=== PATIENT | female | born 1995 | race Caucasian/White ===

== ENCOUNTER → 2016-12-27 | Outpatient (CLI) | payer OTHER ==
[~2016-12-27] MED LIST: HYDR-756 PO
--- NOTE | 2016-12-27 10:25 | Diagnostic Imaging Report ---
PROCEDURE: US Gallbladder. TECHNIQUE: Multiple real-time grayscale images were obtained over the right upper quadrant in various projections. INDICATION: Right upper quadrant pain. FINDINGS: The liver parenchyma appears normal. The gallbladder appears normal. There is no abnormal dilatation of the intra or extrahepatic bile ducts. The visualized portions of the pancreas are normal. The unobstructed right kidney is normal in size, cortical thickness, and echotexture. There is no ascites or fluid collection. IMPRESSION: Normal right upper quadrant ultrasound. Dictated by: Dictated on workstation # [id number]
== END ==
LOC: RAD 07:05
PROVIDERS: ATTEND Nurse Practitioner Family
DX: R10.11 Right upper quadrant pain (principal)
CPT/HCPCS: 76705

== ENCOUNTER → 2017-04-23 | Outpatient (CLI) | payer BC, OTHER ==
[~2017-04-23] MED LIST changes: +CATHETER FLUSH 10 ML SYR IV PRN
--- NOTE | 2017-04-23 14:39 | Diagnostic Imaging Report ---
INDICATION: Abdominal pain. TECHNIQUE AND FINDINGS: Acquisitions were acquired of the abdomen after the administration of 4.8 mCi of technetium 99m Choletec. The ejection fraction was calculated after administering 8 ounces of Ensure. FINDINGS: There is homogeneous uptake of isotope throughout the liver. There is significant accumulation within the gallbladder by 30 minutes. There is free flow of activity in the small bowel. The ejection fraction is 33%. IMPRESSION: No evidence of cystic duct obstruction. The gallbladder ejection fraction was at the lower limits of normal at 33%. Recommend clinical correlation. Dictated by: Dictated on workstation # [id number]
== END ==
LOC: CARD 10:42
PROVIDERS: ATTEND Internal Medicine
DX: R63.4 Abnormal weight loss (principal)
CPT/HCPCS: 78227

== ENCOUNTER 2017-08-07 11:00 | Outpatient (CLI) | payer BC ==
[~2017-08-07] VITALS: Ht 160 cm; Wt 77.6 kg
[~2017-08-07 11:00] MED LIST changes: -CATHETER FLUSH 10 ML SYR IV PRN; +HYDR-3816 PO; +ONDA4TAB8 PO
[2017-08-08] MEDS ORDERED: PANT40TA2 PO (11:42)
== END 2017-08-07 12:55 ==
LOC: PREOP 11:00
PROVIDERS: ATTEND Surgery
DX: Z01.818 Encounter for other preprocedural examination (principal); R19.7 Diarrhea, unspecified; K21.9 Gastro-esophageal reflux disease without esophagitis

== ENCOUNTER → 2017-08-08 | Day surgery (SDC) | payer BC ==
[~2017-08-08] VITALS: Ht 160 cm; Wt 77.6 kg
[~2017-08-08] MED LIST changes: +ACETAMINOPHEN 325 MG TABLET/CAPLET (TYLENOL) PO PRN; +HURRICAINE EXT TUBE (BENZOCAINE) ONE; +HURRICAINE EXT TUBE (BENZOCAINE) XX PRN; +HYDROcodone/APAP 5 MG/325 MG (LORTAB) TAB PO PRN; +LIDOCAINE JELLY 2% (XYLOCAINE) 5 ML TUBE MM PRN; +LIDOCAINE JELLY 2% (XYLOCAINE) 5 ML TUBE ONE; +MIDAZOLAM 2 MG/2 ML (VERSED) VIAL ONE; +NS IV 500 ML 500 ML IV PRN; +NS IV 500 ML 500 ML ONE; +ONDANSETRON 4 MG/2 ML (SDV) Z0FRAN IV PRN; +PANT40TA2 PO; +fentaNYL INJECTION 100 MCG/2 ML AMP ONE; +morphine INJ 10 MG/ML 1ML (SYR OR VIAL) IV PRN
[2017-08-08 09:38] VITALS: BP 117/65
[2017-08-08] MEDS: MIDAZOLAM 2 MG/2 ML (VERSED) VIAL IVP PRN ×7 (10:30→11:06)
[2017-08-08] MEDS: fentaNYL INJECTION 100 MCG/2 ML AMP IVP PRN ×4 (10:31→11:07)
--- NOTE | 2017-08-08 10:41 | Conscious Sedation/ASA ---
Conscious Sedation Pre-Proced Time Reviewed: 10:00 ASA Class: 1 Airway Mallampati Classification: ([place] appropriate class) I. II. III, IV Lungs Heart ASA score ASA 1: a normal healthy patient ASA 2: a patient with a mild systemic disease (mid diabetes, controlled hypertension, obesity ASA 3: a patient with a severe systemic disease that limits activity (angina , COPD, prior Myocardial infarction) ASA 4: a patient with an incapacitating disease that is a constant threat to life (CHF, renal failure) ASA 5: a moribund patient not expected to survive 24 hrs. (ruptured aneurysm) ASA 6: a declared brain patient whose organs are being harvested. For emergent operations, add the letter E after the classification Grade 2 Sedation Plan: Analgesia, Amnesia, Plan communicated to team members, Discussed options with patient/fam, Discussed risks with patient/fam Note The patient is an appropriate candidate to undergo the planned procedure, sedation, and anesthesia. The patient immediately re-assessed prior to indication. LEI LAW MD Aug 08, 2017 10:41 am
--- NOTE | 2017-08-08 10:42 | Progress Note-Pre Operative ---
Pre-Operative Progress Note H&P Reviewed The H&P was reviewed, patient examined and no changes noted. Date Seen by Provider: Aug 08, 2017 Time Seen by Provider: 10:00 Date H&P Reviewed: Aug 08, 2017 Time H&P Reviewed: 10:00 Pre-Operative Diagnosis: GERD, abd pain, mucous stools LEI LAW MD Aug 08, 2017 10:42 am
[2017-08-08 11:30] VITALS: BP 120/65
--- NOTE | 2017-08-08 11:41 | Progress Note-Post Operative ---
Post-Operative Progess Note Surgeon (s)/Making Department Preparer (s) Surgeon LEI LAW MD Making Department Preparer: none Pre-Operative Diagnosis GERD, abd pain, mucous stools Post-Operative Diagnosis reflux esophagitis(class B), small HH(1.5cm), mild-mod gastritis. normal colon and rectum. Procedure & Operative Findings Date of Procedure 08/08/17 Procedure Performed/Findings EGD with bx. Colonoscopy with bx. Anesthesia Type CS Estimated Blood Loss Estimated blood loss (mL): minimal Specimens/Packing Specimens Removed GE jxn, antrum, cecum LEI LAW MD Aug 08, 2017 11:41 am
--- NOTE | 2017-08-08 11:43 | Discharge Inst-Surgical ---
D/C Lap Instructions-KIDO New, Converted, or Re-Newed RX: RX on Chart Follow Up PRN Schedule Dietary evaluation(script in chart) Activity as tolerated High Fiber Diet 30 g or more per day Avoid Alcohol, Caffeine, Spicy [place] and Acid foods. Drink 64 fluid oz or more of fluids per day. Symptoms to Report: Fever over 101 degree F, Nausea/Vomiting If any problems/questions: Contact your physician or go to Emergency Room LEI LAW MD Aug 08, 2017 11:43 am
[2017-08-08 12:00] VITALS: BP 116/67
[2017-08-08 12:09] VITALS: BP 116/67
--- NOTE | 2017-08-08 13:33 | OPERATIVE REPORT ---
DATE OF SERVICE: 08/08/2017 ATTENDING PRIMARY CARE PHYSICIAN: [facility]. PREOPERATIVE DIAGNOSIS: Gastroesophageal reflux disease, diarrhea, mucusy stools. POSTOPERATIVE DIAGNOSIS: Reflux esophagitis class B, small hiatal hernia approximately 1.5 cm in size, mild to moderate gastritis. Colon and rectum were normal. PROCEDURE: EGD with biopsy, colonoscopy with biopsy. SURGEON: Dr. Law. ANESTHESIA: Conscious sedation. ESTIMATED BLOOD LOSS: Minimal. FINDINGS: 1. EGD, reflux esophagitis class B, small hiatal hernia approximately 1.5 cm in size. Mild to moderate severity gastritis with no formal ulcers, polyps or any neoplasms. Pylorus and duodenum appeared normal with no distal obstructions. 2. Colonoscopy: Rectum and anus appeared normal with no inflammatory change to indicate any inflammatory bowel disease. DISPOSITION: The patient tolerated the procedure well. The patient is a 21-year-old female who was initially seen by us 06/2017 for right upper abdominal quadrant pain. She underwent an ultrasound which was normal. She then proceeded with a HIDA scan which showed an ejection fraction of 33% and symptoms upon administration of Kinevac analog consistent with a biliary dyskinesia. On 07/05/2017, she underwent a laparoscopic cholecystectomy. She reports that even in the past six months, she has been having other issues including lower quadrant abdominal pain as well as diarrhea following meals. She was experiencing this before her cholecystectomy as well. She reports that she has epigastric burning sensation and also does have occasional episodes of nocturnal regurgitation. She also reports that she has noticed mucous in her stools. She does not report any red blood per rectum nor any dark tarry stools. She also does not report any known family history of inflammatory bowel disease. DESCRIPTION OF PROCEDURE: The patient was brought to the endoscopy suite, laid in the left lateral decubitus position. After adequate IV pain and sedating medications and conscious sedation anesthesia, the mouthpiece was applied. The endoscope was then placed in the mouth, visualizing the pharynx and hypopharyngeal region. Vocal cords, epiglottis and vallecula are identified and appeared to be normal. The endoscope was then gently intubated at the esophageal opening, esophagus insufflated. The endoscope was then advanced to the first, second and third portions of the esophagus at the level of the GE junction and reflux esophagitis class B identified. There were no ulcers or strictures identified in this region. A biopsy was taken using forceps with visualization of good hemostasis. The endoscope was then easily advanced in the stomach and then endoscope retroflexed, visualizing a small hiatal hernia approximately 1.5 cm in size. A mild to moderate gastritis was also noted. There were no formal ulcers, polyps or any neoplasms identified. A biopsy was taken of the stomach, antrum with forceps with visualization of good hemostasis. The endoscope was then advanced to the pylorus and the first and second portions of duodenum which appeared normal with no distal obstructions as well as no inflammatory changes of the duodenum. The endoscope was then slowly withdrawn taking a second look and suctioning residual air with no additional findings. The patient tolerated this portion of the procedure well. For her gastritis, hiatal hernia and reflux esophagitis, we will recommend the necessary lifestyle and diet accommodations, including small and more frequent meals, avoidance of eating at night as well as head elevation while lying supine. She also needs to avoid alcohol and caffeinated beverages, spicy, greasy and acidic foods. Under the same conscious sedation anesthesia, we then proceeded with the colonoscopy portion of the procedure. A digital rectal examination was performed which did not reveal any significant hemorrhoids. Normal sphincter tone was felt and there were no palpable masses. The endoscope was then intubated to the anus and the rectum gently insufflated. The endoscope was then advanced through the valves of Munoz to the rectum where no polyps or any neoplasms were identified. The endoscope was then advanced through the valves of Munoz to the rectum with no mucosal inflammatory changes identified. We then proceeded through the sigmoid colon where no diverticulosis identified. The endoscope was then advanced to the remainder of the descending, transverse and ascending colon to the cecum. These segments were normal as well. There were no mucosal inflammatory changes identified throughout the colon, rectum or anus to indicate an inflammatory bowel disease. The endoscope was then slowly withdrawn taking a second look and suctioning of residual air with no additional findings. A biopsy was taken of the cecum with forceps with visualization of good hemostasis. The endoscope was then slowly withdrawn while taking a second look and suctioning of residual air with no additional findings. The patient tolerated the procedure well. We will recommend the necessary lifestyle and diet accommodation for irritable bowel syndrome including a high fiber diet with at least 30 grams of fiber per day as well as at least 64-128 fluid ounces of water daily to promote soft stools on a daily basis to retrain her colon. We will also proceed with a dietary consultation. Job ID: [id number] DocumentID: [id number] Dictated Date: 08/08/2017 11:50:26 [employer] Date: 08/08/2017 13:33:05 Dictated By: LEI LAW MD MTDD
== END | disposition home or self-care (01) ==
LOC: ENDO 09:10
PROVIDERS: ATTEND Surgery
DX: K21.0 Gastro-esophageal reflux disease with esophagitis (principal); K63.89 Other specified diseases of intestine; K44.9 Diaphragmatic hernia without obstruction or gangrene; K29.60 Other gastritis without bleeding; R19.7 Diarrhea, unspecified; Z88.2 Allergy status to sulfonamides
CPT/HCPCS: 84703

== ENCOUNTER 2017-11-20 19:09 | Emergency (ER) | payer BC ==
[~2017-11-20] VITALS: Ht 160 cm; Wt 72.6 kg
[~2017-11-20 19:09] MED LIST changes: -ACETAMINOPHEN 325 MG TABLET/CAPLET (TYLENOL) PO PRN; -HURRICAINE EXT TUBE (BENZOCAINE) ONE; -HURRICAINE EXT TUBE (BENZOCAINE) XX PRN; +HYDR-34 PO; -HYDR-3816 PO; -HYDROcodone/APAP 5 MG/325 MG (LORTAB) TAB PO PRN; -LIDOCAINE JELLY 2% (XYLOCAINE) 5 ML TUBE MM PRN; -LIDOCAINE JELLY 2% (XYLOCAINE) 5 ML TUBE ONE; -MIDAZOLAM 2 MG/2 ML (VERSED) VIAL ONE; -NS IV 500 ML 500 ML IV PRN; -NS IV 500 ML 500 ML ONE; -ONDANSETRON 4 MG/2 ML (SDV) Z0FRAN IV PRN; -fentaNYL INJECTION 100 MCG/2 ML AMP ONE; -morphine INJ 10 MG/ML 1ML (SYR OR VIAL) IV PRN
[2017-11-20] MEDS ORDERED: FAMOTIDINE 20MG/2ML IV (PEPCID) IV STA (19:34)
--- NOTE | 2017-11-20 19:42 | ED GI ---
General Chief Complaint: Rect Problems Stated Complaint: BLOOD IN STOOL, ABD PAIN Source of Information: Patient Exam Limitations: No Limitations History of Present Illness Date Seen by Provider: Nov 20, 2017 Time Seen by Provider: 19:30 Initial Comments Patient presents to ER by private conveyance with a chief complaint that 2 days ago she noticed a little bit of dark black tarry stools which today was followed by some passing of clots and bright red blood. She says she's also on her period. In July, 4 months ago she was having a lot of nausea vomiting and had her gallbladder out and then a scope done by Dr. Law, general surgery. They found some gastric ulcers and put her on a PPI, pantoprazole. She says she has not been very good about taking it because she doesn't think it works very well. 2 days ago she was having some acid reflux burning in her stomach epigastric region so she took some omeprazole [id number] and felt that helped with the symptoms quite a bit. She still having some of the symptoms presently. She is not having any shortness of breath chest pain and doesn't have any other significant medical history. She has not taken any other medicines. She says she does drink alcohol on occasion with her last drink being about 3 days ago some red wine. She is having a little stomach discomfort in the epigastric region but no abdominal cramping or pain outside the ordinary. She says she had a few heart palpitations today. No history of coronary disease. She does not smoke but she does relate on occasion. She denies any recreational drug use. She has no dysuria or urinary incontinence or urgency. Allergies and Home Medications Allergies Coded Allergies: Sulfa (Sulfonamide Antibiotics) (Verified Allergy, Unknown, 05/13/15) Home Medications Omeprazole 40 Mg Capsule., 40 MG PO DAILY Prescribed by: LUZ MARINA NIX on 11/20/172058 Pantoprazole Sodium 40 Mg Tablet., 40 MG PO DAILY Prescribed by: LEI LAW on 08/08/17 114 Sucralfate 1 Gm Tablet, 1 GM PO QIDACHS Prescribed by: LUZ MARINA NIX on 11/20/172053 Patient Home Medication List Home Medication List Reviewed: Yes Review of Systems Constitutional: No chills, No diaphoresis, No fever EENTM: No Blurred Vision, No Double Vision, No Eye Pain Respiratory: Denies Cough, Denies Shortness of Air, Denies SOA With Exertion, Denies SOA at Rest Cardiovascular: See HPI, Denies Chest Pain, Denies Irregular Heart Rate, Palpitations Gastrointestinal: Denies Abdomen Distended, Denies Abdominal Pain, Denies Constipated, Denies Diarrhea, Denies Nausea, Rectal Bleeding Genitourinary: Denies Burning, Denies Discharge, Denies Drainage Musculoskeletal: No back pain, No joint pain Skin: No lesions, No pruritus, No rash Psychiatric/Neurological: Denies Headache, Denies Numbness Past [id number] Hx Patient Social History Alcohol Use: Rarely Uses Number of Drinks Today: AA Alcohol Beverage of Choice: Beer Recreational Drug Use: No Smoking Status: Current Someday Smoker Type Used: Electronic/Vapor 2nd Hand Smoke Exposure: No Recent Foreign Travel: No Contact w/Someone Who Travel: No Recent Hopitalizations: No Immunizations Up To Date Tetanus Booster (TDap): Less than 5yrs PED Vaccines UTD: No Date of Pneumonia Vaccine: May 27, 2012 Seasonal Allergies Seasonal Allergies: No Surgeries History of Surgeries: Yes (WISDOM TEETH, LEFT CARPAL TUNNEL) Surgeries: Gallbladder, Orthopedic Respiratory History of Respiratory Disorde: No Currently Using CPAP: No Currently Using BIPAP: No Cardiovascular History of Cardiac Disorders: No Neurological History of Neurological Disord: No Reproductive System Hx Reproductive Disorders: No Sexually Transmitted Disease: No HIV/AIDS: No Female Reproductive Disorders: Denies Genitourinary History of Genitourinary Disor: No Gastrointestinal History of Gastrointestinal Di: Yes (DIARRHEA) Gastrointestinal Disorders: Gastroesophageal Reflux Musculoskeletal History of Musculoskeletal Dis: No Endocrine History of Endocrine Disorders: No HEENT History of HEENT Disorders: No Loss of Vision: Denies Hearing Impairment: Denies Cancer History of Cancer: No Psychosocial History of Psychiatric Problem: No Integumentary History of Skin or Integumenta: No Blood Transfusions History of Blood Disorders: No Adverse Reaction to a Blood Tr: No Physical Exam Vital Signs VS - Last 72 Hours, by Label 11/20/17 19:30 Temp 97.6 Pulse 67 Resp 18 B/P (MAP) 156/95 (115) Pulse Ox 100 O2 Delivery Room Air Capillary Refill : General Appearance: WD/WN, no apparent distress HEENT: PERRL/EOMI, normal ENT inspection, TMs normal, pharynx normal Neck: non-tender, full range of motion, supple, normal inspection Respiratory: chest non-tender, lungs clear, normal breath sounds, no respiratory distress, no accessory muscle use Cardiovascular: normal peripheral pulses, regular rate, rhythm Gastrointestinal: normal bowel sounds, non tender, soft, no organomegaly Rectal: normal exam, normal rectal tone, heme negative stool, No blood streaked stool Extremities: normal range of motion, normal capillary refill Neurologic/Psychiatric: no motor/sensory deficits, alert, normal mood/affect, oriented x 3 Progress/Results/Core Measures Results/Orders Lab Results Laboratory Tests Test 11/20/17 19:45 11/20/17 20:40 Range/Units White Blood Count 8.1 4.3-11.0 10^3/uL Red Blood Count 4.50 4.35-5.85 10^6/uL Hemoglobin 13.6 11.5-16.0 G/DL Hematocrit 40 35-52 % Mean Corpuscular Volume 88 80-99 FL Mean Corpuscular Hemoglobin 30 25-34 PG Mean Corpuscular Hemoglobin Concent 34 32-36 G/DL Red Cell Distribution Width 12.3 10.0-14.5 % Platelet Count 434 H 130-400 10^3/uL Mean Platelet Volume 9.8 7.4-10.4 FL Prothrombin Time 12.9 12.2-14.7 SEC INR Comment 1.0 0.8-1.4 Activated Partial Thromboplast Time 34 24-35 SEC Sodium Level 139 135-145 MMOL/L Potassium Level 3.4 L 3.6-5.0 MMOL/L Chloride Level 105 98-107 MMOL/L Carbon Dioxide Level 23 21-32 MMOL/L Anion Gap 11 5-14 MMOL/L Blood Urea Nitrogen 9 7-18 MG/DL Creatinine 0.75 0.60-1.30 MG/DL Estimat Glomerular Filtration Rate > 60 BUN/Creatinine Ratio 12 Glucose Level 88 70-105 MG/DL Calcium Level 9.7 8.5-10.1 MG/DL Total Bilirubin 0.5 0.1-1.0 MG/DL Aspartate Amino Transf (AST/SGOT) 20 5-34 U/L Alanine Aminotransferase (ALT/SGPT) 15 0-55 U/L Alkaline Phosphatase 57 40-136 U/L Total Protein 7.4 6.4-8.2 GM/DL Albumin 4.8 H 3.2-4.5 GM/DL Urine Color YELLOW Urine Clarity CLEAR Urine pH 6.5 5-9 Urine Specific [place] 1.010 L 1.016-1.022 Urine Protein NEGATIVE NEGATIVE Urine Glucose (UA) NEGATIVE NEGATIVE Urine Ketones 2+ H NEGATIVE Urine Nitrite NEGATIVE NEGATIVE Urine Bilirubin NEGATIVE NEGATIVE Urine Urobilinogen NORMAL NORMAL MG/DL Urine Leukocyte Esterase NEGATIVE NEGATIVE Urine RBC (Auto) 2+ H NEGATIVE Urine RBC RARE /HPF Urine WBC RARE /HPF Urine Squamous Epithelial Cells 2-5 /HPF Urine Crystals NONE /LPF Urine Bacteria NEGATIVE /HPF Urine Casts NONE /LPF Urine Mucus NEGATIVE /LPF Urine Culture Indicated NO My Orders Orders - LUZ MARINA NIX Cbc No Diff (11/20/17 19:34) Comprehensive Metabolic Panel (11/20/17 19:34) Protime With Inr (11/20/17 19:34) Partial Thromboplastin Time (11/20/17 19:34) Ua Culture If Indicated (11/20/17 19:34) Lidocaine 2% Viscous 15 Ml (Xylocaine Vi (11/20/17 19:45) Antacid Suspension (Mylanta Suspension (11/20/17 19:45) Famotidine Injection (Pepcid Injection) (11/20/17 19:34) Urine Bedside (11/20/17 19:34) Occult Blood Stool (11/20/17 19:34) Saline Lock/Iv-Start (11/20/17 19:39) Medications Given in ED Current Medications Medications Dose Ordered Sig/Bia Route Start Time Stop Time Status Last Admin Dose Admin Al Hydrox/Mg Hydrox/Simethicone 30 ml ONCE ONCE PO 11/20/17 19:45 11/20/17 19:46 DC 11/20/17 19:47 30 ML Lidocaine HCl 15 ml ONCE ONCE PO 11/20/17 19:45 11/20/17 19:46 DC 11/20/17 19:47 15 ML Vital Signs/I&O Vital Sign - Last 12Hours 11/20/17 19:30 Temp 97.6 Pulse 67 Resp 18 B/P (MAP) 156/95 (115) Pulse Ox 100 O2 Delivery Room Air Progress Note #1: Time: 19:41 Progress Note We'll get a fecal occult blood test as well as CBC to check for anemia. Check her CMP for other abnormalities. If this is truly a rectal bleed and she is stable and will get her set up a follow-up with Dr. Law in the clinic. If not she is on her period plan to do a urine . Progress Note #2: Time: 20:51 Progress Note The patient's clinical exam and rectal exam are unremarkable. There is no blood on the fecal occult. No stool in the rectal vault. Her history of having blood clots is not consistent with an upper GI bleed. It's possible that this is related to her being on her period. We will have her follow-up with Dr. Law's office since she still having symptoms of GERD and recommend that she stop pantoprazole and just take the omeprazole since she likes it better and add 2 weeks of Carafate. Departure Impression Impression: Primary Impression: History of gastric ulcer Additional Impressions: GERD (gastroesophageal reflux disease) Qualified Codes: K21.9 - Gastro-esophageal reflux disease without esophagitis BRBPR (bright red blood per rectum) Menstrual symptom or sign Disposition: 01 HOME, SELF-CARE Condition: Stable Departure-Patient Inst. Decision time for Depature: 20:52 Referrals: [facility] (PCP/Family) Primary Care Physician Patient Instructions: Bloody Stools, Adult (DC) Add. Discharge Instructions: Tomorrow morning call Dr. Law at his office at [phone] and requests an appointment for follow-up for your bright red blood per rectum. Discuss your symptoms with him. If you begin to have chest pain, shortness of breath, nausea or fevers please return to care sooner. Discontinue the pantoprazole and instead use the omeprazole 40 mg daily for the next month. You can also potato picker the Carafate from the pharmacy and take one tablet 4 times a day for the next 2 weeks. If he still having breakthrough acid reflux or indigestion you can take calcium carbonate, Tums 1-2 tablets every 6 hours as needed. Another option for follow-up would be to go back to your primary care physician and get a referral to gastroenterology. All discharge instructions reviewed with patient and/or family. Voiced understanding. Scripts Omeprazole (Omeprazole) 40 Mg Capsule. 40 MG PO DAILY for 30 Days, #30 CAP 0 Refills Prov: LUZ MARINA NIX 11/20/17 Sucralfate (Carafate) 1 Gm Tablet 1 GM PO QIDACHS for 14 Days, #56 TAB 0 Refills Prov: LUZ MARINA NIX 11/20/17 Copy Copies To 1: LEI LAW MD, TITUS J Nov 20, 2017 19:42
[2017-11-20] MEDS ORDERED: ANTACID SUSP 30 ML UDC (MYLANTA) PO ONE (19:45)
[2017-11-20] MEDS ORDERED: LIDOCAINE 2% VISCOUS 15 ML UDC PO ONE (19:45)
[2017-11-20 20:08] LABS: HEMOGLOBIN 13.6 G/DL (11.5-16.0); MEAN PLATELET VOLUME 9.8 FL (7.4-10.4); RED BLOOD COUNT 4.5 10^6/uL (4.35-5.85); RED CELL DISTRIBUTION WIDTH 12.3 % (10.0-14.5); WHITE BLOOD COUNT 8.1 10^3/uL (4.3-11.0)
[2017-11-20 20:29] LABS: PROTHROMBIN TIME PATIENT 12.9 SEC (12.2-14.7)
[2017-11-20 20:37] LABS: ALANINE AMINOTRANSFERASE 15 U/L (0-55); ALBUMIN 4.8 GM/DL (3.2-4.5); ALKALINE PHOSPHATASE 57 U/L (40-136); BILIRUBIN,TOTAL 0.5 MG/DL (0.1-1.0); BUN/CREATININE RATIO 12; CALCIUM 9.7 MG/DL (8.5-10.1); CARBON DIOXIDE 23 MMOL/L (21-32); CHLORIDE 105 MMOL/L (98-107); CREATININE SERUM 0.75 MG/DL (0.60-1.30); GFR ESTIMATED > 60; GLUCOSE 88 MG/DL (70-105); POTASSIUM 3.4 MMOL/L (3.6-5.0); SODIUM 139 MMOL/L (135-145); TOTAL PROTEIN 7.4 GM/DL (6.4-8.2)
[2017-11-20 20:49] LABS: BILIRUBIN,URINE NEGATIVE (NEGATIVE); CLARITY,URINE CLEAR; COLOR,URINE YELLOW; GLUCOSE, URINE (UA) NEGATIVE (NEGATIVE); KETONES,URINE 2+ (NEGATIVE); LEUKOCYTE ESTERASE ,URINE NEGATIVE (NEGATIVE); NITRITE,URINE NEGATIVE (NEGATIVE); PH,URINE 6.5 (5-9); PROTEIN,URINE NEGATIVE (NEGATIVE); UROBILINOGEN,URINE NORMAL (NORMAL)
[2017-11-20] MEDS ORDERED: SUCR1TAB36 PO (20:54)
[2017-11-20 20:58] LABS: BACTERIA,URINE NEGATIVE /HPF; RBC,URINE RARE /HPF; WBC,URINE RARE /HPF
[2017-11-20] MEDS ORDERED: OMEP40CA36 PO (20:59)
[2017-11-20 21:24] VITALS: BP 131/77
[2017-11-20] MEDS ORDERED: FAMOTIDINE 20 MG (PEPCID) TABLET PO ONE (21:30)
[2017-11-20] MEDS ORDERED: diphenhydrAMINE 25 MG TAB (BENADRYL) PO ONE (21:30)
== END 2017-11-20 21:23 | disposition home or self-care (01) ==
LOC: EDUNIT# 19:09 → ER 19:10
DX: K21.9 Gastro-esophageal reflux disease without esophagitis (principal); K62.5 Hemorrhage of anus and rectum; N94.9 Unspecified condition associated with female genital organs and menstrual cycle; F17.210 Nicotine dependence, cigarettes, uncomplicated; Z88.2 Allergy status to sulfonamides; Z87.19 Personal history of other diseases of the digestive system
CPT/HCPCS: 36415; 80053; 81000; 84703; 85027; 85610; 85730; 96374